=== PATIENT | female | born 1975 | race Caucasian/White ===

== ENCOUNTER 2024-09-22 13:43 | Emergency (ER) | payer MEDICARE, MEDICAID, SELFPAY ==
--- NOTE | ~2024-09-22 | XR_ITS ---
EXAMINATION: XR LUMBAR SPINE 2-3 VIEWS HISTORY: low back pain COMPARISON: There are no prior studies for comparison. FINDINGS: AP, lateral, and coned down views of the lumbar spine are submitted. Osseous mineralization is normal. There is slight leftward curvature. Five nonrib-bearing lumbar vertebral bodies are identified, maintaining normal height without evidence of fracture or spondylolisthesis. The intervertebral disc spaces are preserved. There is mild osteoarthritis of the lower lumbar facet joints. The visualized paraspinal soft tissues are unremarkable. XR/XR lumbar spine 2-3V IMPRESSION: Slight leftward curvature and mild osteoarthritis of the facet joints. Electronically signed by: Trav Dye MD 09/22/2024 02:48 PM EST
[2024-09-22 13:50] VITALS: BP 174/103; PULSE 86; RESP 20; TEMP 35.8; O2SAT 99; BMI 28.2
--- NOTE | 2024-09-22 13:50 | ED.BACK ---
HPI - Back Pain/Injury General Chief Complaint: Back Pain/Injury Stated Complaint: Back No Injury Time Seen by Provider: 09/22/24 15:05 Source: patient, RN notes reviewed and old records reviewed Mode of arrival: ambulatory History of Present Illness ED Provider: Jolanta Cobb PA-C [facility] Narrative: 48-year-old female with a past medical history developmental delay presenting to ED complaining of low back pain x2 minutes with radiation down LLE. Patient denies known injury, trauma or fall. States was in bed when pain started. Sister provides additional history stating patient fell about 1 week ago. Denies numbness, tingling, incontinence, retention, fever, abdominal pain. Related Data Previous Rx's ?Medication ?Instructions ?Recorded lidocaine 5 % topical patch 1 patch topical DAILY PRN pain #30 09/22/24 (Lidoderm) ea Allergies Allergy/AdvReac Type Severity Reaction Status Date / Time No Known Allergies Allergy Verified 09/22/24 13:54 Review of Systems Review of Systems: Yes all other systems are reviewed and are negative Constitutional: Constitutional: Reports as per [facility] Past Medical History Attestation statement: The following information was validated with the patient. Source: old records reviewed Social History Social History Advance Directives: No Advance Directives Information Provided: Yes Do you have a plan to hurt others: No Plan Physical Exam Vital Signs: Vital Signs: Last Vital Signs Temp 96.4 F L 09/22/24 13:50 Pulse 83 09/22/24 15:18 Resp 16 09/22/24 15:18 BP 154/84 H 09/22/24 15:18 Pulse Ox 99 09/22/24 15:18 O2 Del Method Room Air 09/22/24 15:18 BMI result Body Mass Index 28.2 Const: General: cooperative, healthy appearing and no acute distress Orientation/consciousness: patient oriented x3 Limitations: no limitations HEENT: Head: Yes normal to inspection and Yes atraumatic Ears: hearing grossly normal bilaterally General nose exam: Normal external nose present Face and sinus: Yes normal facial exam Eyes: General: appearance normal, both eyes and all related structures EOM: EOMs intact bilaterally Neck: Neck: Yes normal visual inspection and Yes no meningeal signs Resp: Effort & Inspection: normal respiratory effort and no respiratory distress Cardio: Rate: regular rate GI: Inspection: Yes normal to inspection Palpation (GI): Soft to palpation, nontender, no guarding and not rigid : General: Yes no CVA tenderness Back/Spine/Pelvis: Other: No midline cervical/thoracic/lumbar spinous tenderness/step-off or deformity. Back pain not reproducible Back: no CVA tenderness Skin: Rashes: no rashes Wounds: no wounds Neuro: Other: Strength intact throughout. No saddle anesthesia. Sensation intact to light touch. Neurovascular intact distally General: patient oriented x3, gait normal, tone normal, moves all extremities, no meningeal signs, no focal motor deficits and CN's II-XI intact bilaterally Cranial nerves: Yes CN's II-XII intact bilaterally Gait exam (Neuro): Normal gait present Extrem: General: Yes normal to inspection Course Course Course Narrative: This is a Rapid Medical Exam performed in triage by Jolanta Cobb PA-C. Full HPI, ROS and PE to be performed by primary ED provider. 48yo F w/pmhx developmental delay presenting to the ED c/o low back pain x 2 minutes w/radiation down LLE. States was in bed when pain started. denies injury/fall, dysuria, incontinence/retention PE: no midline spinous ttp. pain not reproducible. ambulating w/steady gait. abdomen soft nontender Plan: XR XR lumbar spine 2-3V IMPRESSION: Slight leftward curvature and mild osteoarthritis of the facet joints. Results discussed with patient including worrisome signs and symptoms and strict return precautions, and when to return to the emergency department. They verbalized understanding and feel safe for discharge at this time. Medical Decision Making Medical Decision Making MDM Narrative: 48-year-old female with a past medical history developmental delay presenting to ED complaining of low back pain x2 minutes with radiation down LLE. On exam hypertensive, NAD, nontoxic appearing, ambulating with steady gait, no midline spinous tenderness throughout. No red flag symptoms. Pain not reproducible. Concern for MSK pain/strain vs radiculopathy. Rule out fracture. Low suspicion for cauda equina, cord compression, or epidural abscess Plan: X-ray Please refer to course for remaining clinical decision making, interpretation of labs/imaging results, and discussions with consultants and/or family members. Differential Diagnosis Differential Diagnoses: The differential diagnosis associated with the presentation includes As above Independent Interpretation I performed an independent interpretation of an: Plain X-Ray Radiology Impression Discussion of test interpretation with radiology: I have reviewed the radiologist's reading. External Record Review External record reviewed: Inpatient record, Office record, Outpatient record, Prior outpatient labs, Prior outpatient radiology, Primary care record and Outside ED record Tests considered The following testing was considered but not selected: As above Prescription Management I considered prescription management with: Pain Medication Chronic Conditions Patient?s care impacted by: Other Social Determinants Patient?s care significantly limited by Social Determinants of Health including: Other Social Determinant of Health Discharge Plan Discharge Clinical Impression: Lumbar radiculopathy Patient Disposition: Home, Self-Care Instructions: Acute Low Back Pain (ED) Additional Instructions: Your pain is likely musculoskeletal Please take ibuprofen and Tylenol at home for pain Lidoderm patches are numbing patches, apply to painful area If symptoms persist or worsen, pain becomes unbearable, you developed urinary retention or incontinence, or weakness return to the ED Prescriptions: New lidocaine [Lidoderm] 5 % adhesive patch,medicated 1 patch topical DAILY MDD remove after 12 hours PRN (Reason: pain) Qty: 30 0RF Rx Instructions: leave on most painful area for up to 12 hrs Referrals: Physician,Unknown J [Physician] - Interventions: ED Discharge Assessment Last Done: 09/22/24 15:29 Print Language: Macedonian
[2024-09-22 15:18] VITALS: BP 154/84; PULSE 83; RESP 16; O2SAT 99
[2024-09-22 15:29] VITALS: BP 154/84; PULSE 83; RESP 16; TEMP 35.8; O2SAT 99
== END 2024-09-22 15:29 | disposition home or self-care (01) ==
PROVIDERS: Emergency Provider Student in an Organized Health Care Education/Training Program; PCP Nurse Practitioner
DX: M54.16 Radiculopathy, lumbar region (principal); M79.605 Pain in left leg; M79.604 Pain in right leg
CPT/HCPCS: 72100; 99282; 99283

== ENCOUNTER → 2024-09-22 13:53 | Outpatient (BNV) | payer SELFPAY | PROVIDERS: Visit Provider Radiology Diagnostic Radiology | DX: M54.50 Low back pain, unspecified (principal) | CPT/HCPCS: 72100 ==